=== PATIENT | female | born 1985 | race Caucasian/White ===

== ENCOUNTER 2017-02-24 21:50 | Emergency (ER) | payer SELFPAY ==
[2017-02-24 22:02] VITALS: BP 150/98; PULSE 114; TEMP 98; BMI 25.6
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
== END 2017-02-24 23:09 ==
LOC: FER 21:50
DX: Z04.1 Encounter for examination and observation following transport accident (principal); V43.52XA Car driver injured in collision with other type car in traffic accident, initial encounter; Y93.89 Activity, other specified; Y92.410 Unspecified street and highway as the place of occurrence of the external cause; F17.210 Nicotine dependence, cigarettes, uncomplicated; K52.9 Noninfective gastroenteritis and colitis, unspecified; F41.9 Anxiety disorder, unspecified
CPT/HCPCS: 99281-25